=== PATIENT | male | born 1975 | race Caucasian/White ===

== ENCOUNTER → 2016-06-19 | Outpatient (CLI) | payer OTHER ==
[~2016-06-19] MED LIST: CHOL1000 PO; IBUP-1428 PO; LVQ750 PO
--- NOTE | 2016-06-19 11:17 | DIAGNOSTIC IMAGING REPORT ---
CHEST 2 VIEWS ROUTINE CLINICAL HISTORY: Pneumonia. COMPARISON STUDY: 05/03/2016 FINDINGS: The cardiac and mediastinal contours are normal. There is no evidence of focal pulmonary consolidation. There is no evidence of failure. No pleural effusions are visualized.[ There is been resolution of the previously described airspace opacities. IMPRESSION: Resolution of the previously identified pneumonia. No active disease in the chest. Electronically signed by: Harvinder Cristobal M.D. 06/19/2016 11:15 AM Dictated Date/Time: 06/19/2016 11:14 AM
[2016-06-19 11:50] LABS: BASO % 0.3 %; BASO ABS # 0.02 K/uL (0-0.2); COMPLETE YES; EOS % 3.1 %; HEMATOCRIT 47.2 % (42-52); IG% 0.3 %; LYMPH % 18.5 %; LYMPH ABS # 1.24 K/uL (1.2-3.4); MEAN CELL VOLUME 86.4 fL (80-100); MEAN CORPUSCULAR HGB CONC 34.7 g/dl (32-36); MEAN PLATELET VOLUME 10.5 fL (7.4-10.4); MONO % 5.4 %; NEUT % 72.4 %; PLATELET COUNT 173 K/uL (130-400); RED BLOOD COUNT 5.46 M/uL (4.7-6.1); WHITE BLOOD COUNT 6.71 K/uL (4.8-10.8)
== END | disposition home or self-care (01) ==
LOC: C.RAD1850 10:59
PROVIDERS: ATTEND Internal Medicine Pulmonary Disease
DX: J18.9 Pneumonia, unspecified organism (principal)

== ENCOUNTER → 2016-07-17 | Outpatient (CLI) | payer OTHER ==
[2016-07-24 15:20] LABS: ASPERGILLUS FUMIGATUS NEGATIVE (NEGATIVE); M. FAENI (S. RECTIVIRGULA) NEGATIVE (NEGATIVE); PIGEON SERUM NEGATIVE (NEGATIVE); QUANTIF TB AG-NIL 0.04 IU/ML; QUANTIFERON NIL 0.05 IU/ML; SACCHAROMONOSPORA VIRIDIS AB NEGATIVE (NEGATIVE); THERMOACTINOMYCES CANDIDUS NEGATIVE (NEGATIVE); THERMOACTINOMYCES VULGARIS NEGATIVE (NEGATIVE)
== END | disposition home or self-care (01) ==
LOC: C.LAB1850 12:15
PROVIDERS: ATTEND Internal Medicine Pulmonary Disease
DX: J18.9 Pneumonia, unspecified organism (principal)

== ENCOUNTER → 2016-08-05 | Outpatient (CLI) | payer OTHER ==
--- NOTE | 2016-08-05 21:25 | ECHOCARDIOGRAM REPORT ---
*NOTICE TO RECEIVING DEMOCRAT AGENCY This information is strictly Confidential and protected under [place] law. [place] law prohibits you from making any further disclosure of this information unless further disclosure is expressly permitted by the written consent of the person to whom it pertains or is authorized by law. A general authorization for the release of medical or other information is not sufficient for this purpose. Hospital accepts no responsibility if the information is made available to any other person, INCLUDING THE PATIENT. Interpretation Summary * Name: GABBI DUMONT Study Date: 08/05/2016 02:10 PM BP: 165/102 mmHg * Patient Location: [facility] HR: 75 * : 1975 (M/d/yyyy) Gender: Male Height: 77 in * Age: 41 yrs Ethnicity: CA Weight: 240 lb * Ordering Physician: Maikol Blanco * Referring Physician: Maikol Blanco * Performed By: Brenda Farrell * * Reason For Study: HEPATOMEGALY * BSA: 2.4 m2 * -- Conclusions -- * 1. Normal left ventricular size and systolic function. EF 55-60%. No definite regional wall motion abnormalities. Mild to moderate concentric left ventricular hypertrophy. * 2. No significant valvular abnormalities visualized. * 3. Normal estimated right ventricular systolic pressure. * 4. No prior study available for comparison. Procedure Details * A complete two-dimensional transthoracic echocardiogram was performed (2D, M-mode, Doppler and color flow Doppler). Left Ventricle * Normal left ventricular size and systolic function. EF 55-60%. No definite regional wall motion abnormalities. Mild to moderate concentric left ventricular hypertrophy. Right Ventricle * The right ventricle is normal in size and function. * The right ventricular systolic function is normal as assessed by tricuspid annular plane systolic excursion (TAPSE) (normal >1.5 cm). Atria * The left atrial size is normal. * Right atrial size is normal. * There is no evidence of atrial septal defect, but resolution does not allow assessment for a patent foramen ovale. * The thickening of interatrial septum suggests lipomatous hypertrophy. Mitral Valve * The mitral valve leaflets appear normal. There is no evidence of stenosis, fluttering, or prolapse. * There is trace mitral regurgitation. Tricuspid Valve * The tricuspid valve is not well visualized, but is grossly normal. * There is no tricuspid stenosis. * There is trace tricuspid regurgitation. Aortic Valve * The aortic valve is normal in structure and function. * No hemodynamically significant valvular aortic stenosis. * No aortic regurgitation is present. Pulmonic Valve * The pulmonary valve is inadequately visualized, but the Doppler data is adequate for interpretation. * There is no pulmonic valvular stenosis. * Mild pulmonic valvular regurgitation. Great Vessels * The aortic root is normal size. * Ascending aorta of normal dimension * Normal pulmonary venous flow pattern. Pericardium/Pleural * There is no pericardial effusion. Great Vessels * IVC not well visualized but appears normal in size. MMode 2D Measurements and Calculations IVSd 1.4 cm IVSs 2.0 cm LVIDd 4.3 cm LVIDs 2.7 cm LVPWd 1.3 cm LVPWs 1.6 cm IVS/LVPW 1.1 FS 37.4 % EDV(Teich) 82.1 ml ESV(Teich) 26.5 ml EF(Teich) 67.7 % EDV(cubed) 78.4 ml ESV(cubed) 19.3 ml EF(cubed) 75.4 % % IVS thick 41.1 % % LVPW thick 18.6 % LV mass(C)d 221.4 grams LV mass(C)dI 91.6 grams/m\S\2 LV mass(C)s 186.1 grams LV mass(C)sI 77.0 grams/m\S\2 CO(Teich) 3.7 l/min CI(Teich) 1.5 l/min/m\S\2 SV(Teich) 55.6 ml SI(Teich) 23.0 ml/m\S\2 CO(cubed) 4.0 l/min CI(cubed) 1.6 l/min/m\S\2 SV(cubed) 59.1 ml SI(cubed) 24.5 ml/m\S\2 Ao root diam 4.1 cm Ao root area 13.1 cm\S\2 ACS 2.0 cm LA dimension 4.4 cm asc Aorta Diam 3.1 cm LA/Ao 1.1 LVOT diam 2.3 cm LVOT area 4.1 cm\S\2 LVAd ap4 40.8 cm\S\2 LVLd ap4 9.1 cm EDV(MOD-sp4) 149.0 ml EDV(sp4-el) 131.7 ml LVAs ap4 21.1 cm\S\2 LVLs ap4 7.5 cm ESV(MOD-sp4) 51.0 ml ESV(sp4-el) 57.5 ml EF(MOD-sp4) 65.8 % EF(sp4-el) 56.3 % LVAd ap2 38.5 cm\S\2 LVLd ap2 9.5 cm EDV(MOD-sp2) 131.0 ml EDV(sp2-el) 142.2 ml LVAs ap2 20.7 cm\S\2 LVLs ap2 7.7 cm ESV(MOD-sp2) 47.0 ml ESV(sp2-el) 60.5 ml EF(MOD-sp2) 64.1 % EF(sp2-el) 57.5 % CO(MOD-sp4) 6.6 l/min CI(MOD-sp4) 2.7 l/min/m\S\2 SV(MOD-sp4) 98.0 ml SI(MOD-sp4) 40.5 ml/m\S\2 CO(MOD-sp2) 5.6 l/min CI(MOD-sp2) 2.3 l/min/m\S\2 SV(MOD-sp2) 84.0 ml SI(MOD-sp2) 34.8 ml/m\S\2 CO(sp4-el) 5.0 l/min CI(sp4-el) 2.1 l/min/m\S\2 SV(sp4-el) 74.2 ml SI(sp4-el) 30.7 ml/m\S\2 CO(sp2-el) 5.5 l/min CI(sp2-el) 2.3 l/min/m\S\2 SV(sp2-el) 81.7 ml SI(sp2-el) 33.8 ml/m\S\2 Doppler Measurements and Calculations MV E max igor 76.5 cm/sec MV A max igor 76.0 cm/sec MV E/A 1.0 MV dec time 0.18 sec Ao V2 max 103.2 cm/sec Ao max PG 4.3 mmHg Ao max PG (full) 0.17 mmHg NBA(V,A) 4.1 cm\S\2 NBA(V,D) 4.1 cm\S\2 LV V1 max PG 4.1 mmHg LV V1 mean PG 1.9 mmHg LV V1 max 101.1 cm/sec LV V1 mean 62.9 cm/sec LV V1 VTI 19.5 cm SV(LVOT) 80.8 ml SI(LVOT) 33.4 ml/m\S\2 PA V2 max 52.9 cm/sec PA max PG 1.1 mmHg PI end-d igor 103.2 cm/sec TR max igor 217.9 cm/sec RVSP(TR) 22.0 mmHg RAP systole 3.0 mmHg
== END | disposition home or self-care (01) ==
LOC: C.CPL 13:54
PROVIDERS: ATTEND Family Medicine
DX: R16.0 Hepatomegaly, not elsewhere classified (principal)

== ENCOUNTER → 2016-09-11 | Outpatient (CLI) | payer OTHER ==
[~2016-09-11] MED LIST changes: +OPTIRAY 320 IV PRN
--- NOTE | 2016-09-11 11:38 | DIAGNOSTIC IMAGING REPORT ---
CT SCAN OF THE ABDOMEN AND PELVIS WITH IV CONTRAST CLINICAL HISTORY: Splenomegaly. COMPARISON STUDY: Chest CT dated 05/04/2016. TECHNIQUE: Following the IV administration of 92 cc of Optiray 320, CT scan of the abdomen and pelvis is performed from the lung bases to the proximal femora. Images are reviewed in the axial, sagittal, and coronal planes. IV contrast was administered without complication. Automated dose control exposure was utilized. CT DOSE: 750.53 mGy.cm FINDINGS: Lung bases: The heart is normal in size and without pericardial effusion. A small fat-containing Bochdalek hernia is present at the right lung base. The lung bases are otherwise clear. A small hiatal hernia is identified. Liver: The contrast-enhanced liver is enlarged, measuring 22.6 cm in length. The liver is otherwise normal in contour and attenuation. There is no intrahepatic biliary ductal dilatation. The hepatic veins and portal veins are patent. Gallbladder: Unremarkable. Spleen: The spleen is enlarged, measuring 21 cm in length. There is unchanged appearance of a 10 cm simple cyst in the spleen with peripheral calcifications. Pancreas: Unremarkable. Adrenal glands: Unremarkable. Kidneys: The contrast enhanced kidneys are normal in size and without hydronephrosis. The kidneys enhance symmetrically. Abdominal vasculature: The abdominal aorta is normal in course and caliber. Bowel: The small bowel and colon are normal in course and caliber. There are scattered colonic diverticula without CT evidence of acute diverticulitis. The appendix is well-visualized and normal. Peritoneum: There is no intraperitoneal free air or abdominal ascites. There is a small fat-containing umbilical hernia. Lymphadenopathy: None. Pelvic viscera: The bladder, prostate, and seminal vesicles are normal as imaged. Skeletal structures: No lytic or blastic lesions are seen. IMPRESSION: 1. There are no acute infectious or inflammatory findings in the abdomen or pelvis. 2. Hepatosplenomegaly. 3. A 10 cm simple cyst in the spleen with thin peripheral calcifications is unchanged from 05/04/2016. Electronically signed by: Francisco Huynh M.D. 09/11/2016 11:37 AM Dictated Date/Time: 09/11/2016 11:11 AM
== END | disposition home or self-care (01) ==
LOC: C.CTS 10:52
PROVIDERS: ATTEND Internal Medicine Hematology & Oncology
DX: R16.1 Splenomegaly, not elsewhere classified (principal)

== ENCOUNTER → 2016-12-22 | Outpatient (CLI) | payer OTHER ==
[~2016-12-22] MED LIST changes: +GADAVIST IV PRN; -OPTIRAY 320 IV PRN
--- NOTE | 2016-12-22 13:53 | DIAGNOSTIC IMAGING REPORT ---
MRI OF THE THORACIC SPINE WITH AND WITHOUT CONTRAST CLINICAL HISTORY: Upper back and arm numbness. COMPARISON STUDY: No previous studies for comparison. TECHNIQUE: Utilizing a 1.5 Bridget magnet, multiplanar, multi echo imaging of the thoracic spine was performed pre and postcontrast administration. Injection of 10.5 cc of Gadavist IV was uneventful. FINDINGS: Alignment of the thoracic spine is anatomic. Vertebral body heights are maintained. There is no suspicious marrow replacement. Thoracic disc spaces are preserved. Paravertebral soft tissues are unremarkable. There is no intracanalicular mass or fluid. There is no abnormal cord enhancement. Note is made of several suspected foci of increased T2 signal within the thoracic cord. This is noted within the central aspect of the cord at the T6 level and the right aspect of the cord at the T11-T12 level. Note is made of possible associated minimal cord expansion at the T6 level. There may also be increased cord signal within the lower cervical cord at the C7 level. Central canal and neural foramen are patent. IMPRESSION: 1. Several suspected small foci of increased cord signal at the C7, T6 and T11-T12 levels with possible minimal cord expansion at the T6 level. While nonspecific, demyelination is favored. Differential considerations include multiple sclerosis, an infectious etiology such as Lyme disease and nonspecific transverse myelitis. An MRI of the brain and cervical spine might be considered in addition to CSF sampling. 2. No central canal or neural foraminal stenosis. Electronically signed by: Tiburcio Mendoza M.D. 12/22/2016 1:51 PM Dictated Date/Time: 12/22/2016 10:36 AM
== END | disposition home or self-care (01) ==
LOC: C.MRI 08:48
PROVIDERS: ATTEND Family Medicine
DX: G90.09 Other idiopathic peripheral autonomic neuropathy (principal)

== ENCOUNTER → 2016-12-29 | Outpatient (CLI) | payer OTHER ==
--- NOTE | 2016-12-29 19:05 | DIAGNOSTIC IMAGING REPORT ---
MRI OF THE BRAIN WITHOUT AND WITH IV CONTRAST CLINICAL HISTORY: Numbness. Possible demyelinating disease. COMPARISON STUDY: No previous studies for comparison. TECHNIQUE: MRI of the brain was performed from the vertex to the skull base utilizing various T1 and T2 weighted sequences. Following the IV administration of 10 mL of Gadavist contrast, additional enhanced images were obtained. FINDINGS: Sagittal T1, axial diffusion, proton density and T2 weighted axial, coronal FLAIR, and pre and post axial T1-weighted images were acquired. These were supplemented with post gadolinium coronal T1 weighted images. No intra or extra-axial mass lesions are visualized. Axial diffusion-weighted images reveal no evidence of acute or subacute infarction. There is no evidence of ventricular dilatation. Proton density T2-weighted and FLAIR images reveal foci of increased T2 and FLAIR signal within the periventricular white matter and left centrum semiovale. The left centrum semiovale lesion measures 11 mm and demonstrates an equivocal faint postcontrast blush. These white matter lesions are greater than expected for age and suggest a nonspecific demyelinating process. There are no abnormal flow voids. IMPRESSION: 1. Foci of increased T2 signal within the white matter, greater than expected for age. The findings suggest a nonspecific demyelinating process. This could be secondary to multiple sclerosis, or a post infectious etiology. CSF sampling also might be considered. Electronically signed by: Harvinder Cristobal M.D. 12/29/2016 7:03 PM Dictated Date/Time: 12/29/2016 6:59 PM
--- NOTE | 2016-12-29 19:33 | DIAGNOSTIC IMAGING REPORT ---
CERVICAL SPINE MRI WITH AND WITHOUT CONTRAST HISTORY: Numbness, previous MRI RECOMMENDING FURTHER TESTING TECHNIQUE: Multiplanar multisequence MRI of the cervical spine was performed both before and after the use of intravenous contrast. COMPARISON STUDY: Thoracic spine MRI 12/22/2016. FINDINGS: Alignment and curvature are intact. No fractures within the cervical spine. Disc spaces are preserved. No disc herniations. No significant central canal or neural foraminal narrowing. Prevertebral soft tissues and the C1-C2 interval are intact. Best seen on the STIR sequences there are multiple foci of increased T2 signal throughout the cervical spinal cord. This is seen at the posterior columns of C4, right side of the C5-C6 level, posterior columns of C7, and T2 level. Dominant focus at the C5-C6 level measures 1.8 cm in length. This lesion also demonstrates peripheral enhancement. IMPRESSION: Multiple T2 hyperintense foci seen within the cervical and upper thoracic spinal cord as described above. The dominant lesion at the C5-C6 level demonstrates peripheral enhancement. Therefore, this most likely represents multiple sclerosis with active demyelination. Lymes disease or nonspecific transverse myelitis could also have a similar appearance in the appropriate clinical setting. Electronically signed by: Dequan Myrick M.D. 12/29/2016 7:32 PM Dictated Date/Time: 12/29/2016 7:02 PM
== END | disposition home or self-care (01) ==
LOC: C.MRI 17:23
PROVIDERS: ATTEND Family Medicine
DX: R20.2 Paresthesia of skin (principal)

== ENCOUNTER → 2016-12-29 | Outpatient (CLI) | payer OTHER ==
[~2016-12-29] VITALS: Ht 195.6 cm; Wt 104.4 kg
[~2016-12-29] MED LIST changes: -GADAVIST IV PRN
[2016-12-29 15:07] VITALS: BP 138/81; PULSE 85; Ht 195.6 cm; Wt 104.4 kg
== END | disposition home or self-care (01) ==
LOC: C.NEUR 14:25
PROVIDERS: ATTEND Physician Assistant
DX: G47.10 Hypersomnia, unspecified (principal); G47.30 Sleep apnea, unspecified; Z87.01 Personal history of pneumonia (recurrent)

== ENCOUNTER 2017-02-09 07:07 | Day surgery (SDC) | payer OTHER ==
[~2017-02-09] VITALS: Ht 195.6 cm; Wt 104.5 kg
[2017-02-09] VITALS (10 sets, daily range): BP systolic 104–140; BP diastolic 41–74; PULSE 62–84; TEMP 36.8–36.9; O2SAT 95–99; Ht 195.6 cm; Wt 104.5 kg
[~2017-02-09 07:07] MED LIST changes: -CHOL1000 PO; -IBUP-1428 PO
[2017-02-09] MEDS ORDERED: CHOL1000 PO (07:57)
[2017-02-09] MEDS ORDERED: IBUP-1428 PO (07:57)
--- NOTE | 2017-02-09 09:37 | DIAGNOSTIC IMAGING REPORT ---
LUMBAR PUNCTURE DIAGNOSTIC CLINICAL HISTORY: 41 years-old Male presenting with concern for demyelinating disease. COMPARISON: MR brain from 12/29/[address] of the abdomen and pelvis from 09/11/2016. PROCEDURE: The procedure, risks and benefits were discussed with the patient including the risk of spinal headache, bleeding and infection. The patient agreed to the procedure and informed written consent was obtained. The procedure was performed by Dr. Monzon following a timeout. The L3-4 interlaminar space was targeted. Skin overlying the space was prepped and draped in the usual aseptic fashion and local anesthesia was achieved with 1% lidocaine. Under intermittent fluoroscopic guidance, a 20-gauge x 3 1/2 in. Sprotte needle was inserted into the thecal sac. Opening pressure was obtained and prone positioning, which measured 20 cmH2O. A total of 8 mL of clear, colorless cerebral spinal fluid was obtained and spread amongst 4 vials. The patient tolerated the procedure well. There were no immediate complications. The specimens were sent to the laboratory at the request of the referring physician. Reference range: Normal opening pressure 6-25 cmH2O (95% reference interval for lateral decubitus positioning). Fluoroscopy dosage: Not available. mGy. Fluoroscopy time: 0.9 minutes. Number of fluoroscopic spot images: 1. IMPRESSION: 1. Successful fluoroscopic guided lumbar puncture with removal of 8 mL of clear, colorless cerebral spinal fluid. No immediate complications. 2. Normal opening pressure. Electronically signed by: Zain Monzon M.D. 02/09/2017 9:36 AM Dictated Date/Time: 02/09/2017 9:34 AM
--- NOTE | 2017-02-09 09:58 | Discharge Instructions ---
Discharge Instructions Procedure Procedure Date: Feb 09, 2017. Reason for visit: Demyelinating Disorder; W/ Opening Pressure. Discharge Discharge Date: Feb 09, 2017. Discharge Diagnosis: Successful fluoroscopic guided lumbar puncture with normal opening pressure Medications Restart Stopped Medication(s): Resume home meds Instructions Activity Recommendations: No limitations Return to School/Work: no limitations Recommended Home Diet: No Limitations Provider Instructions: Lumbar Puncture performed with Fluoroscopic guidance [ L3-4] level with [20G ] needle. No complications. Allergies Coded Allergies: No Known Allergies (Unverified , 02/09/17) Vinod Saeed Recommendations: Call your doctor if: * Temperature above 101 degrees * Pain not relieved by pain medicine ordered * There is increased drainage or redness from any incision * You have any unanswered questions or concerns. Your Doctors Instructions noted above were prepared by provider Zain Monzon. Patient Signature Section: Patient Instructions Signature Page Angel Roberto Patient (or Guardian) Signature/Date: I have read and understand the instructions given to me by my caregivers. Caregiver/RN/Doctor Signature/Date: The above-named patient and/or guardian has received patient instructions on this date. + Original Patient Signature Page (only) stays with chart. Please make copy for patient.
[2017-02-09] MEDS ORDERED: ACETAMINOPHEN 500 MG TAB PO PRN (10:00)
[2017-02-09 10:20] LABS: CSF APPEARANCE CLEAR; CSF COLOR COLORLESS; CSF XANTHOCHROMIC NO XANTHOCHROMIA
[2017-02-09 10:24] LABS: CSF TOTAL PROTEIN 60.6 mg/dl (15.0-45.0)
[2017-02-13 08:35] LABS: ALBUMIN 4.2 g/dL (3.7-5.1); IGG CSF 3.9 mg/dL (0.8-7.7); IGG SERUM 814 mg/dL (694-1618); LYME DNA PCR CSF OR SYNOVIAL Not detected (Not Detected); LYME DNA SOURCE CSF; LYME IGG CSF NO BANDS DETECTED; LYME IGM CSF NO BANDS DETECTED; MYELIN BASIC PROTEIN 663 <2.0 mcg/L (0.0-4.0)
== END 2017-02-09 13:47 | disposition home or self-care (01) ==
LOC: C.ACU 07:07
PROVIDERS: ATTEND Psychiatry & Neurology Neurology
DX: G37.9 Demyelinating disease of central nervous system, unspecified (principal)

== ENCOUNTER → 2017-02-26 | Outpatient (CLI) | payer OTHER ==
[~2017-02-26] MED LIST changes: +CHOL1000 PO; +GADAVIST IV PRN; +IBUP-1428 PO; -LVQ750 PO
--- NOTE | 2017-02-26 20:41 | DIAGNOSTIC IMAGING REPORT ---
CERVICAL SPINE COMBO, BRAIN COMBO FOR MS CLINICAL HISTORY: 41 years-old Male presenting with G37.9 Demyelinating disordernew left hand numbness, eval for active disease. TECHNIQUE: Multisequence, multiplanar MR imaging of the brain was performed before and after the administration of intravenous contrast. IV contrast: 10 mL of Gadavist. COMPARISON: 12/29/2016. FINDINGS: MR brain: Ventricles and sulci normal in size. T2/FLAIR hyperintensity in the subcortical white matter of the left frontal lobe and periventricular within the corpus callosum (at least 3 lesions). This is unchanged from prior exam. The dominant left frontal subcortical white matter lesion demonstrates a vague enhancement to a similar degree as on prior exam. No mass effect or midline shift. No restricted diffusion to suggest acute ischemia. No hemorrhage. No extra-axial fluid collection. T2 skull base flow voids preserved. Bone marrow signal intensity within the calvarium within normal limits. MR cervical spine: Normal cervical lordosis. Vertebral bodies maintain normal height, alignment, and bone marrow signal intensity. Intervertebral disc spaces preserved. No neural foraminal or spinal canal narrowing. Previously noted spinal cord signal abnormality at C5-6 (right anterolateral) persists with persistent although possibly slightly decreased degree of enhancement on postcontrast imaging. Multiple new foci of abnormal spinal cord signal intensity, one at C4 (paramedian posterior), one at C7 (paramedian posterior), and potentially also at T1 (left anterolateral). These additional sites demonstrate lesser degrees of enhancement. IMPRESSION: 1. Similar appearance of T2/FLAIR hyperintense lesions in the subcortical and periventricular white matter. No new lesions. Persistent vague enhancement of the dominant left frontal lobe subcortical white matter lesion suggesting active myelination. 2. Interval development of multiple new cervical spinal cord lesions which demonstrate lesser degrees of enhancement in comparison to the persistent lesion at C5-6, which demonstrates the greatest degree of enhancement. Again, this suggests active the myelination. Electronically signed by: Zain Monzon M.D. 02/26/2017 8:39 PM Dictated Date/Time: 02/26/2017 8:26 PM
== END | disposition home or self-care (01) ==
LOC: C.MRI 18:57
PROVIDERS: ATTEND Psychiatry & Neurology Neurology
DX: G37.9 Demyelinating disease of central nervous system, unspecified (principal)

== ENCOUNTER → 2017-03-09 | Outpatient (CLI) | payer OTHER ==
[~2017-03-09] MED LIST changes: -GADAVIST IV PRN; +OPTIRAY 320 IV PRN
--- NOTE | 2017-03-09 16:10 | DIAGNOSTIC IMAGING REPORT ---
ABD/PELVIS IV AND ORAL CONT HISTORY: 41 years-old Male ENLARGED SPLEEN follow-up study to assess splenic cyst. COMPARISON: CT abdomen and pelvis 09/11/[address] chest 05/04/2016 TECHNIQUE: Multiple axial CT images of the abdomen and pelvis were obtained following the intravenous ministration of 94 mL Optiray 320. Oral contrast also administered. A dose lowering technique was used consistent with the principals of GAB. FINDINGS: Imaged lung bases are generally clear. No pneumoperitoneum. Imaged inferior cardiac chambers are unremarkable. There is nondependent air within the right ventricle, likely secondary to iatrogenic venous injection. Liver and spleen are again noted to be mildly enlarged. No focal hepatic mass lesions. No intrahepatic biliary ductal dilation. Spleen measures up to 20 cm in length. Again seen is a circumscribed splenic cyst measuring up to 10.0 x 8.7 cm, previous a 10.0 x 8.8 cm with thin peripheral calcifications. The pancreas and adrenal glands are within normal limits. Gallbladder is unremarkable. Kidneys, ureters and urinary bladder are unremarkable. 5 mm low attenuating lesion of the interpolar left kidney suggests cyst, however is indeterminate. Urinary bladder and prostate are within normal limits. The abdominal aorta is normal in course and caliber. No bulky adenopathy. There is no bowel obstruction or focal bowel wall thickening. There are a few scattered colonic diverticula without CT evidence of acute diverticulitis. The appendix is not definitely seen, however no secondary signs of acute appendicitis. Soft tissues are unremarkable. Bones appear intact. IMPRESSION: 1. Redemonstration of hepatosplenomegaly with stable appearance of peripherally calcified 10.0 x 8.7 cm splenic cyst. This is stable in appearance dating back to chest CT 05/04/2016. 2. Colonic diverticulosis without diverticulitis. The above report was generated using voice recognition software. It may contain grammatical, syntax or spelling errors. Electronically signed by: Vish Walker M.D. 03/09/2017 4:08 PM Dictated Date/Time: 03/09/2017 4:02 PM
== END | disposition home or self-care (01) ==
LOC: C.CTS 15:06
PROVIDERS: ATTEND Internal Medicine Hematology & Oncology
DX: R16.1 Splenomegaly, not elsewhere classified (principal); K57.90 Diverticulosis of intestine, part unspecified, without perforation or abscess without bleeding